=== PATIENT | male | born 1995 | race Caucasian/White ===

== ENCOUNTER 2021-07-20 18:51 | Emergency (ER) | payer BC, MEDICAID ==
[2021-07-20 20:44] LABS: Hemoglobin 13.9 g/dL (13.5-17.5); Mean Corpuscular Hemoglobin 29.9 pg (27.0-33.0); Mean Corpuscular Volume 96.6 fl (81.2-95.1); Mean Platelet Volume 8.5 fl (7.4-10.4); Platelet Count 361 10x3/uL (150-450); RBC Distribution Width 19.4 % (11.5-14.5); Red Blood Cell (RBC) Count 4.65 10x6/uL (4.32-5.72); White Blood Cell (WBC) Count 16.9 10x3/uL (3.5-10.5)
[2021-07-20 21:00] LABS: ALT (SGPT) 90 U/L (8-55); AST (SGOT) 57 U/L (5-34); Albumin 3.9 g/dL (3.5-5.0); Alkaline Phosphatase 56 U/L (40-110); Anion Gap 19 mmol/L (10-20); BUN (Urea Nitrogen) 5 mg/dL (8.9-20.6); Bilirubin, Total 0.5 mg/dL (0.2-1.2); Calc. Creatinine Clearance 0 mL/min (70-130); Calcium 9.2 mg/dL (7.8-10.44); Carbon Dioxide 27 mmol/L (22-29); Chloride 102 mmol/L (98-107); Globulin 2.2 g/dL (2.4-3.5); Glucose 80 mg/dL (70-105); Potassium 4.7 mmol/L (3.5-5.1); Protein, Total 6.1 g/dL (6.0-8.3); Sodium 143 mmol/L (136-145)
[2021-07-20 22:17] LABS: MDiff Complete? YES
[2021-07-20 22:22] LABS: Band 2 % (5-11); Lymphocytes 19 % (21-51); Monocytes 12 % (0-10); Neutrophil 53 % (42-75); Reactive Lymphocytes 14 % (0-10)
[2021-07-20 22:27] LABS: Platelet Morphology Comment Appears Adequate; RBC Morphology Normal
[2021-07-20] MEDS ORDERED: Morphine 4 MG/ML VIAL ONE (23:09)
== END 2021-07-20 23:27 | disposition home or self-care (01) ==
LOC: CSHERS 18:51
DX: S32.029A Unspecified fracture of second lumbar vertebra, initial encounter for closed fracture (principal); W22.8XXA Striking against or struck by other objects, initial encounter
CPT/HCPCS: 70450; 71275; 72125; 74177; 80053; 85025; 96374; J2270